=== PATIENT | female | born 1950 | race Caucasian/White ===

== ENCOUNTER → 2016-09-07 | Outpatient (CLI) | payer OTHER, MEDICARE ==
[~2016-09-07] MED LIST: CALC500C70 PO; LEVO75TA5 PO; MULT-506 PO
[2016-09-07 11:39] LABS: BASO % 0.5 %; BASO ABS # 0.03 K/uL (0-0.2); COMPLETE YES; EOS % 1.3 %; HEMATOCRIT 41.4 % (37-47); IG% 0.2 %; LYMPH % 25.4 %; LYMPH ABS # 1.41 K/uL (1.2-3.4); MEAN CELL VOLUME 95.8 fL (80-100); MEAN CORPUSCULAR HEMOGLOBIN 31.7 pg (25-34); MEAN CORPUSCULAR HGB CONC 33.1 g/dl (32-36); MEAN PLATELET VOLUME 11.2 fL (7.4-10.4); MONO % 5.9 %; NEUT % 66.7 %; PLATELET COUNT 209 K/uL (130-400); RED BLOOD COUNT 4.32 M/uL (4.2-5.4); WHITE BLOOD COUNT 5.56 K/uL (4.8-10.8)
[2016-09-07 11:56] LABS: ALKALINE PHOSPHATASE 72 U/L (45-117); ALT/SGPT 19 U/L (12-78); AST/SGOT 13 U/L (15-37); BLOOD UREA NITROGEN 19 mg/dl (7-18); BUN/CREATININE RATIO 20.6 (10-20); CALCIUM 9.1 mg/dl (8.5-10.1); CARBON DIOXIDE 26 mmol/L (21-32); CHLORIDE 104 mmol/L (98-107); CHOLESTEROL 211 mg/dl (0-200); CHOLESTEROL/HDL RATIO 3.3; CREATININE 0.91 mg/dl (0.60-1.20); GLUCOSE 86 mg/dl (70-99); HDL CHOLESTEROL 63 mg/dl; POTASSIUM 4.2 mmol/L (3.5-5.1); SODIUM 140 mmol/L (136-145)
[2016-09-07 12:07] LABS: ALB/GLOB RATIO 1.4 (0.9-2); LDL CHOLESTEROL CALCULATED 126 mg/dl; THYROID STIMULATING HORMONE 0.447 uIu/ml (0.300-4.500); TRIGLYCERIDES 110 mg/dl (0-150); VERY LOW DENSITY LIPOPROT CALC 22 mg/dl
== END | disposition home or self-care (01) ==
LOC: C.LABBC 09:16
PROVIDERS: ATTEND Internal Medicine Geriatric Medicine
DX: Z00.00 Encounter for general adult medical examination without abnormal findings (principal); M81.0 Age-related osteoporosis without current pathological fracture; E03.9 Hypothyroidism, unspecified; E78.5 Hyperlipidemia, unspecified; R10.9 Unspecified abdominal pain; K58.9 Irritable bowel syndrome, unspecified; G43.109 Migraine with aura, not intractable, without status migrainosus; E55.9 Vitamin D deficiency, unspecified; G47.33 Obstructive sleep apnea (adult) (pediatric)

== ENCOUNTER → 2016-11-27 | Day surgery (SDC) | payer OTHER, MEDICARE ==
[2016-11-23 08:33] VITALS: Ht 162.6 cm; Wt 53.2 kg
[~2016-11-27] VITALS: Ht 162.6 cm; Wt 53.2 kg
[~2016-11-27] MED LIST changes: +LIDOCAINE HCL 2% 2 ML VIAL (20MG/ML) ONE; +MIDAZOLAM HCL 1 MG/ML 2ML VIAL ONE; +ONDANSETRON INJ 2 MG/ML 2 ML VIAL ONE; +PROPOFOL IV EMULSION 10 MG/ML 20 ML VIAL IV ONE; +SODIUM CHLORIDE 0.9% 500ML 500 ML IV ONE
--- NOTE | 2016-11-27 13:01 | Endo History and Physical ---
History & Physical Date of Service: Nov 27, 2016. Chief Complaint: History of colon polyps Referring Physician: Wilver Beckham History of Present Illness 66 yo CM who presents for colonoscopy secondary to history of colon polyps. Past Surgical History Hx Cardiac Surgery: No Hx Internal Defibrillator: No Hx Pacemaker: No Hx Abdominal Surgery: Yes (APPY, "FERTILITY SURGERY") Hx of Implantable Prosthesis: No Hx Post-Op Nausea and Vomiting: Yes Hx Cancer Surgery: No Hx Thoracic Surgery: No Hx Orthopedic: Yes (ORIF RT FEMUR ([place]ARD[place])) Hx Urinary Tract Surgery: No Family History None Social History Smoking Status: Never Smoker Hx Substance Use: No Hx Alcohol Use: Yes (OCCASIONALLY) Allergies Coded Allergies: Dairy (Verified Allergy, Unknown, DOES NOT EAT-CAN NOT TOLERATE, 11/23/16) Penicillins (Verified Allergy, Unknown, RASH, 11/23/16) Morphine (Verified Adverse Reaction, Mild, MAKES PT NAUSEATED, 06/17/13) Current Medications Reported Home Medications Medications Dose Route/Sig Max Daily Dose Days Date Category Multivitamin (Multivitamins) Tab 1 Tab PO QAM 06/17/13 Reported Os-Davian 500 Plus D (Calcium/Vitamin D) Tab 1 Tab PO QAM 06/17/13 Reported Levothyroxine Sodium 75 Mcg Tab 75 Mcg PO QAM 06/17/13 Reported Vital Signs Weight (Kilograms): 53.18 Height (Feet): 5 Height (Inches): 4 Physical Exam General Appearance: WD/WN, no apparent distress Respiratory/Chest: Auscultation: breath sounds normal Cardiovascular: Heart Auscultation: RRR Abdomen: Bowel Sounds: normal Inspection & Palpation: soft, non-distended, no tenderness, guarding & rebound Assessment and Plan Assessment: 66 yo CM who presents for colonoscopy secondary to history of colon polyps. Plan: Proceed with colonoscopy.
--- NOTE | 2016-11-27 14:04 | GI REPORT ---
Procedure Date: 11/27/2016 1:17 PM Procedure: Colonoscopy Indications: High risk colon cancer surveillance: Personal history of colonic polyps Medicines: Monitored Anesthesia Care Complications: No immediate complications. Estimated Blood Loss: Estimated blood loss: none. Procedure: Pre-Anesthesia Assessment: - Prior to the procedure, a History and Physical was performed, and patient medications and allergies were reviewed. The patient's tolerance of previous anesthesia was also reviewed. The risks and benefits of the procedure and the sedation options and risks were discussed with the patient. All questions were answered, and informed consent was obtained. Prior Anticoagulants: The patient has taken no previous anticoagulant or antiplatelet agents. ASA Grade Assessment: II - A patient with mild systemic disease. After reviewing the risks and benefits, the patient was deemed in satisfactory condition to undergo the procedure. After I obtained informed consent, the scope was passed under direct vision. Throughout the procedure, the patient's blood pressure, pulse, and oxygen saturations were monitored continuously. The scope was introduced through the anus and advanced to the terminal ileum. The colonoscopy was performed without difficulty. The patient tolerated the procedure well. The quality of the bowel preparation was good. The terminal ileum, ileocecal valve, appendiceal orifice, and rectum were photographed. Findings: A 3 mm polyp was found in the cecum. The polyp was sessile. The polyp was removed with a cold biopsy forceps. Resection and retrieval were complete. Two sessile polyps were found in the ascending colon. The polyps were 5 to 7 mm in size. These polyps were removed with a hot snare. Resection and retrieval were complete. Multiple small-mouthed diverticula were found in the sigmoid colon. Non-bleeding internal hemorrhoids were found during retroflexion. The hemorrhoids were small. Impression: - One 3 mm polyp in the cecum, removed with a cold biopsy forceps. Resected and retrieved. - Two 5 to 7 mm polyps in the ascending colon, removed with a hot snare. Resected and retrieved. - Diverticulosis in the sigmoid colon. - Non-bleeding internal hemorrhoids. Recommendation: - Resume previous diet. - Continue present medications. - Repeat colonoscopy for surveillance based on pathology results. - Return to primary care physician as previously scheduled. Bo Nation DO 11/27/2016 2:03:22 PM This report has been signed electronically. Note Initiated On: 11/27/2016 1:17 PM I attest to the content of the Intraoperative Record and orders documented therein, exceptions below
--- NOTE | 2016-11-27 14:07 | Discharge Instructions ---
Endoscopy Patient Instructions Date / Procedure(s) Performed Nov 27, 2016. Colonoscopy Allergy Information Coded Allergies: Dairy (Verified Allergy, Unknown, DOES NOT EAT-CAN NOT TOLERATE, 11/23/16) Penicillins (Verified Allergy, Unknown, RASH, 11/23/16) Morphine (Verified Adverse Reaction, Mild, MAKES PT NAUSEATED, 06/17/13) Discharge Date / Findings Nov 27, 2016. Colon polyps Diverticulosis Internal hemorrhoids Medication Instructions OK to resume all medications today as prescribed. Reported Home Medications Medications Dose Route/Sig Max Daily Dose Days Date Category Multivitamin (Multivitamins) Tab 1 Tab PO QAM 06/17/13 Reported Os-Davian 500 Plus D (Calcium/Vitamin D) Tab 1 Tab PO QAM 06/17/13 Reported Levothyroxine Sodium 75 Mcg Tab 75 Mcg PO QAM 06/17/13 Reported Provider Instructions Activity Restrictions - No exercising or heavy lifting for 24 hours. - Do not drink alcohol the day of the procedure. - Do not drive a car or operate machinery until the day after the procedure. - Do not make any important decisions or sign important papers in 24 hours after the procedure. Following Day: - Return to full activity which may include returning to work/school. Diet Start your diet with liquids and light foods (jello, soup, juice, toast). Then eat your usual diet if not nauseated. Treatment For Common After Affects For mild abdominal pain, bloating, or excessive gas: - Rest - Eat lightly - Lie on right side Follow-Up Information Follow-up with Dr. Andrea Beckham as scheduled Anesthesia Information What You Should Know You have had a procedure that required some medicine to reduce anxiety and discomfort. This treatment is called moderate sedation. After receiving the treatment, you may be sleepy, but you will be able to breathe on your own. The effects of the treatment may last for several hours. Follow these instructions along with Activity/Diet recommendations noted above: * Do NOT do anything where dizziness or clumsiness would be dangerous. * Rest quietly at home today, then you can be up and about tomorrow. * Have a responsible person stay with you the rest of today. * You may have had an I.V. today. If so, you may take the dressing off later today. Recommendations Call your doctor if: * Trouble breathing * Continuous vomiting for more than 24 hours * Temperature above 101 degrees * Severe abdominal pain or bloating * Pain not relieved by pain medicine ordered * There is increased drainage or redness from any incision * A large amount of rectal bleeding greater than 2-3 tablespoons. (If you had a polyp/s removed or have hemorrhoids, a small amount of blood - from the rectum is to be expected.) * You have any unanswered questions or concerns. IN THE EVENT OF A SERIOUS EMERGENCY, GO TO THE NEAREST EMERGENCY ROOM Your discharge instructions were prepared by provider Bo Nation. Patient Instructions Signature Page Nella Rutherford Patient (or Guardian) Signature/Date: I have read and understand the instructions given to me by my caregivers. Caregiver/RN/Doctor Signature/Date: The above-named patient and/or guardian has received patient instructions on this date. + Original Patient Signature Page (only) stays with chart. Please make copy for patient.
--- NOTE | 2016-11-27 14:19 | Anesthesiology Progress Note ---
Anesthesia Post Op Note Date & Time Nov 27, 2016 at 14:18 Vital Signs Pain Intensity: 0 Vital Signs Past 12 Hours Date Time Temp Pulse Resp B/P Pulse Ox O2 Delivery O2 Flow Rate FiO2 11/27/16 14:15 70 16 117/72 97 Room Air 11/27/16 14:00 68 16 94/60 96 Room Air 11/27/16 12:58 36.8 64 20 107/65 98 Room Air Notes Mental Status: alert / awake / arousable, participated in evaluation Pt Amnestic to Procedure: Yes Nausea / Vomiting: adequately controlled Pain: adequately controlled Airway Patency, RR, SpO2: stable & adequate BP & HR: stable & adequate Hydration State: stable & adequate Anesthetic Complications: no major complications apparent
[2016-11-27 14:30] VITALS: BP 111/66; PULSE 60; O2SAT 98
== END | disposition home or self-care (01) ==
LOC: C.GI 12:38
PROVIDERS: ATTEND Internal Medicine
DX: Z12.11 Encounter for screening for malignant neoplasm of colon (principal); D12.2 Benign neoplasm of ascending colon; D12.0 Benign neoplasm of cecum; K57.30 Diverticulosis of large intestine without perforation or abscess without bleeding; K64.8 Other hemorrhoids; Z86.010 Personal history of colon polyps; Z90.49 Acquired absence of other specified parts of digestive tract

== ENCOUNTER → 2017-07-17 | Day surgery (SDC) | payer OTHER, MEDICARE ==
[2017-07-02 11:30] VITALS: Ht 162.6 cm; Wt 53.2 kg
[2017-07-03 17:44] LABS: BASO % 0.8 %; BASO ABS # 0.04 K/uL (0-0.2); COMPLETE YES; EOS % 3.3 %; HEMATOCRIT 38.9 % (37-47); IG% 0.2 %; LYMPH % 35.6 %; LYMPH ABS # 1.86 K/uL (1.2-3.4); MEAN CELL VOLUME 94.9 fL (80-100); MEAN CORPUSCULAR HEMOGLOBIN 32.2 pg (25-34); MEAN CORPUSCULAR HGB CONC 33.9 g/dl (32-36); MEAN PLATELET VOLUME 11.2 fL (7.4-10.4); MONO % 7.1 %; PLATELET COUNT 194 K/uL (130-400); WHITE BLOOD COUNT 5.22 K/uL (4.8-10.8)
[2017-07-03 18:06] LABS: BUN/CREATININE RATIO 16.8 (10-20); CALCIUM 9.2 mg/dl (8.5-10.1); CREATININE 0.92 mg/dl (0.60-1.20)
[2017-07-03 18:09] LABS: INR 0.9 (0.9-1.1); PARTIAL THROMBOPLASTIN RATIO 1.1; PROTHROMBIN TIME (PATIENT) 10.1 SECONDS (9.0-12.0)
[~2017-07-17] VITALS: Ht 162.6 cm; Wt 53.2 kg
[~2017-07-17] MED LIST changes: +ACETAMINOPHEN 325 MG TAB PO PRN; +ARTIFICIAL TEARS OP OINT 3.5 GM TUBE ONE; +ATROPINE SULFATE 0.1 MG/ML 5ML SYR IV PRN; +CLINDAMYCIN PHOS 150 MG/ML 2 ML VIAL IV SCH; +DEXAMETHASONE SOD INJ 4 MG/ML VIAL ONE; +ERYTHROMYCIN OP OINT 5 MG/GM 3.5 GM TUBE ONE; +EpHEDrine SULFATE INJ 50 MG/ML AMP IV PRN; +FENTANYL CITRATE INJ 50 MCG/1 ML 2 ML VIAL IV PRN; +FENTANYL CITRATE INJ 50 MCG/1 ML 2 ML VIAL ONE; +GENTIAN VIOLET TOP SOLN DROP CHARGE ONE; +KETOROLAC TROMETHAMINE 15 MG/ML VIAL IV. PRN; +LACTATED RINGER'S 1000ML 1,000 ML IV SCH; +LIDOCAINE/EPINEPHRINE 1% INJ 50 ML VIAL ONE; +METOCLOPRAMIDE HCL INJ 5 MG/ML 2 ML VIAL IV PRN; +ONDANSETRON INJ 2 MG/ML 2 ML VIAL IV PRN; +OXYCODONE/ACETAMINOPHEN 5-325 TAB PO PRN; +POVIDONE-IODINE OP SOLN 30 ML BTL ONE; +SODIUM CHLORIDE 0.9% 1000ML 1,000 ML IV SCH; -SODIUM CHLORIDE 0.9% 500ML 500 ML IV ONE
--- NOTE | 2017-07-17 07:50 | History & Physical Bridge - [place] ---
H&P Re-Evaluation Bridge Note: I have examined the patient, reviewed the History & Physical and in the interval since the performance of the History & Physical I have noted the following changes of clinical significance: No changes noted
--- NOTE | 2017-07-17 09:18 | [facility] Post Operative Brief Note ---
Immediate Operative Summary Operative Date Jul 17, 2017. Pre-Operative Diagnosis Bilateral Dermatochalasis Post-Operative Diagnosis Same Procedure(s) Performed Bilateral Upper Blepharoplasty Surgeon Dr. Matt New Car Sales Manager Surgeon(s) Emilie Medrano PA-C Estimated Blood Loss 1 mL Findings dermatochalasis Specimens None Anesthesia general Complication(s) None Disposition Recovery Room / PACU
--- NOTE | 2017-07-17 09:28 | Discharge Instructions ---
Discharge Instructions Date of Service Jul 17, 2017. Admission Reason for Admission: Bilateral Dermatochalasis Discharge Discharge Diagnosis / Problem: dermatochalasis Discharge Goals Goal(s): Decrease discomfort, Improve function Activity Recommendations Activity Limitations: per Instructions/Follow-up section ACTIVITY RECOMMENDATIONS: __Normal activities _x_No bending, lifting or straining _x_No driving __Driving allowed when you are off pain medications _x_Walking permitted __You should have help at home for ___ days DRESSINGS: x__No dressings required __Keep dressings dry/in place until first office visit __Remove dressings ___ and leave dressings off _x_Apply ice _at least first 3 days- 20 min on, 20 min off while awake as much as possible __Remove dressings and reapply garment _x_Apply antibiotic ointment to wounds 3-4 times/day until tube is gone BATHING: __Keep dressings dry _x_Sponge bathing permitted __Showering permitted _x_No swimming, hot tubs or soaking in a tub MEDICATIONS: Resume previous medications unless instructed otherwise by your surgeon. _x_Do not use aspirin, Motrin, Advil or Ibuprofen as these may promote bleeding. Please use Tylenol. _x_Prescription(s) provided: pain medication and antibiotic ointment were provided at your last office visit OTHER INSTRUCTIONS: __Record drain output 2-3 times per day SPECIAL CARE INSTRUCTIONS: * It is normal to have a mild fever after surgery. If your temperature is higher than 101.5 degrees F, please call the office at [phone]. * Constipation is a typical side effect of pain medication. An over-the- counter stool softener will help relieve this. * Leaking around surgical drains may occur and should not cause concern. Sometimes these drains become clogged. If this happens, remove the bulb and milk the clot out of the tube, then replace the bulb. * Drainage from wounds after liposuction is normal and should be expected. Garments will become soiled. You should protect furniture and bedding. This drainage should mostly subside within 2-3 days. Leave garments in place unless instructed to remove them. * If you have unusual drainage from a wound or are concerned you have an infection or have any questions or concerns, please call the office at [phone]. FOLLOW UP VISIT: If not already scheduled, please call the office, , when you return home after surgery to schedule an appointment to be seen in _2__ days. . Current Hospital Diet Patient's current hospital diet: Discharge Diet Recommended Diet: Regular Diet Procedures Procedures Performed: Bilateral Upper Blepharoplasty Pending Studies Studies pending at discharge: no Medical Emergencies . Who to Call and When: Medical Emergencies: If at any time you feel your situation is an emergency, please call 911 immediately. . Non-Emergent Contact Non-Emergency issues call your: Primary Care Provider, Surgeon . "Provider Documentation" section prepared by Yen Medrano. . VTE Core Measure Inpt VTE Proph given/why not?: SCD's [place] Drug Monitoring Program Search Results: no issues identified
[2017-07-17 10:48] VITALS: TEMP 36.2
--- NOTE | 2017-07-17 10:59 | Anesthesia Progress Nt - [facility] ---
Anesthesia Post Op Note Date & Time Jul 17, 2017 at 10:58 Vital Signs Pain Intensity: 3 Vital Signs Past 12 Hours Date Time Temp Pulse Resp B/P (MAP) Pulse Ox O2 Delivery O2 Flow Rate FiO2 07/17/17 10:48 36.2 64 16 115/73 (87) 96 Room Air 07/17/17 10:15 64 18 123/74 98 07/17/17 10:15 64 18 07/17/17 10:13 36.7 65 16 123/74 96 Room Air 07/17/17 10:10 64 20 07/17/17 10:10 65 20 127/73 96 07/17/17 10:05 65 14 07/17/17 10:05 66 14 124/73 98 07/17/17 10:00 69 16 126/81 98 07/17/17 10:00 68 16 07/17/17 09:56 116/70 07/17/17 09:55 69 22 100 07/17/17 09:55 67 22 07/17/17 09:50 70 18 112/66 100 07/17/17 09:50 69 18 07/17/17 09:45 73 20 07/17/17 09:45 71 20 110/68 100 07/17/17 09:40 73 25 07/17/17 09:40 74 25 112/69 100 07/17/17 09:35 72 16 117/67 100 07/17/17 09:35 72 16 07/17/17 09:30 77 20 108/65 100 07/17/17 09:30 76 20 07/17/17 09:25 36.0 83 24 102/64 100 Diffusion Mask 6 07/17/17 09:25 102/64 07/17/17 07:31 37.1 63 16 116/68 (84) 98 Room Air Notes Mental Status: alert / awake / arousable, participated in evaluation Pt Amnestic to Procedure: Yes Nausea / Vomiting: adequately controlled Pain: adequately controlled Airway Patency, RR, SpO2: stable & adequate BP & HR: stable & adequate Hydration State: stable & adequate Anesthetic Complications: no major complications apparent
[2017-07-17 11:30] VITALS: BP 106/72; PULSE 67; O2SAT 98
--- NOTE | 2017-07-17 15:11 | OPERATIVE REPORT ---
DATE OF OPERATION: 07/17/2017 PREOPERATIVE DIAGNOSIS: Bilateral upper eyelid dermatochalasis. POSTOPERATIVE DIAGNOSIS: Same. PROCEDURE: Bilateral upper blepharoplasty. SURGEON: Dr. Tiffany Matt. TREATMENT PLANT OPERATOR: Yen Medrano PA-C. ANESTHESIA: General. COMPLICATIONS: None. INDICATION FOR THE PROCEDURE: The patient is a 67-year-old female who presented to my office with drooping eyelids and visual field obstruction. We discussed performing non-cosmetic upper blepharoplasty with possible brow lift. Ultimately, she decided against brow lift at the advice of her daughter, who is an wheel and pinion inspector. We elected to proceed with bilateral non-cosmetic upper eyelid blepharoplasty. BRIEF DESCRIPTION OF THE PROCEDURE: The risks, benefits and alternatives of the procedure were explained to the patient who agreed and signed consent. She was identified and marked in the preoperative holding area. She was brought to the operating room where she was positioned supine and placed under general anesthesia without incident. Surgical site was prepped and draped sterilely. A time-out procedure was performed. Markings were applied. A trapezoidal incision was marked within the supratarsal crease. There was some mild asymmetry between the supratarsal creases and therefore I marked them both 7 mm above the ciliary margin and the midpupillary line. Incision was carried medially toward the medial punctum taking care not to cross this anatomic landmark and also marked into the lateral canthal area. Superior incision was marked about 1 cm below the brow. The skin was pinched to make sure that adequate closure could be performed. This was felt to be easily achievable without causing any degree of lagophthalmos. Identical markings were applied to the right side. Corneal protectors were placed. 1% lidocaine with epinephrine was used to anesthetize the planned incisions. I began with the left side. A 15 blade scalpel was used to make the incision. Skin was dissected off the underlying orbicularis musculature using electrocautery. The excision was performed in a lateral to medial direction. I opened the medial fat compartments bilaterally, but there was only minimal return of fat. Hemostasis was achieved with electrocautery. The wound was reapproximated using 6-0 nylon interrupted sutures taking a bite of orbicularis muscle with each suture. An identical procedure was undertaken on the right side. Following completion of the procedure, corneal protectors were removed. Eyes were irrigated with balanced salt solution and antibiotic ophthalmic ointment was applied. The procedure was tolerated well. The patient was extubated, and transferred to recovery in satisfactory condition. Yen Medrano PA-C was present and scrubbed throughout the entire procedure and assisted in retraction during skin dissection and simultaneous wound closure. I attest to the content of the Intraoperative Record and any orders documented therein. Any exception s are noted below.
== END | disposition home or self-care (01) ==
LOC: X.SURG 07:12
PROVIDERS: ATTEND Plastic Surgery
DX: H02.833 Dermatochalasis of right eye, unspecified eyelid (principal); H02.836 Dermatochalasis of left eye, unspecified eyelid; L90.8 Other atrophic disorders of skin; E78.5 Hyperlipidemia, unspecified; G47.33 Obstructive sleep apnea (adult) (pediatric); M81.0 Age-related osteoporosis without current pathological fracture; E89.0 Postprocedural hypothyroidism; E55.9 Vitamin D deficiency, unspecified; Z87.81 Personal history of (healed) traumatic fracture; Z80.49 Family history of malignant neoplasm of other genital organs; Z88.0 Allergy status to penicillin

== ENCOUNTER → 2017-12-07 | Outpatient (CLI) | payer OTHER, MEDICARE ==
[~2017-12-07] MED LIST changes: -ACETAMINOPHEN 325 MG TAB PO PRN; -ARTIFICIAL TEARS OP OINT 3.5 GM TUBE ONE; -ATROPINE SULFATE 0.1 MG/ML 5ML SYR IV PRN; -CLINDAMYCIN PHOS 150 MG/ML 2 ML VIAL IV SCH; -DEXAMETHASONE SOD INJ 4 MG/ML VIAL ONE; -ERYTHROMYCIN OP OINT 5 MG/GM 3.5 GM TUBE ONE; -EpHEDrine SULFATE INJ 50 MG/ML AMP IV PRN; -FENTANYL CITRATE INJ 50 MCG/1 ML 2 ML VIAL IV PRN; -FENTANYL CITRATE INJ 50 MCG/1 ML 2 ML VIAL ONE; -GENTIAN VIOLET TOP SOLN DROP CHARGE ONE; -KETOROLAC TROMETHAMINE 15 MG/ML VIAL IV. PRN; -LACTATED RINGER'S 1000ML 1,000 ML IV SCH; -LIDOCAINE HCL 2% 2 ML VIAL (20MG/ML) ONE; -LIDOCAINE/EPINEPHRINE 1% INJ 50 ML VIAL ONE; -METOCLOPRAMIDE HCL INJ 5 MG/ML 2 ML VIAL IV PRN; -MIDAZOLAM HCL 1 MG/ML 2ML VIAL ONE; -ONDANSETRON INJ 2 MG/ML 2 ML VIAL IV PRN; -ONDANSETRON INJ 2 MG/ML 2 ML VIAL ONE; -OXYCODONE/ACETAMINOPHEN 5-325 TAB PO PRN; -POVIDONE-IODINE OP SOLN 30 ML BTL ONE; -PROPOFOL IV EMULSION 10 MG/ML 20 ML VIAL IV ONE; -SODIUM CHLORIDE 0.9% 1000ML 1,000 ML IV SCH
[2017-12-07 11:16] LABS: BASO % 1.7 %; BASO ABS # 0.07 K/uL (0-0.2); EOS ABS # 0.12 K/uL (0-0.5); HEMOGLOBIN 13.7 g/dL (12.0-16.0); LYMPH % 49.9 %; LYMPH ABS # 2.02 K/uL (1.2-3.4); MEAN CELL VOLUME 93.9 fL (80-100); MEAN CORPUSCULAR HEMOGLOBIN 32.2 pg (25-34); MEAN CORPUSCULAR HGB CONC 34.3 g/dl (32-36); MEAN PLATELET VOLUME 11.3 fL (7.4-10.4); MONO % 8.9 %; MONO ABS # 0.36 K/uL (0.11-0.59); NEUT % 36.5 %; NEUT ABS # 1.48 K/uL (1.4-6.5); PLATELET COUNT 185 K/uL (130-400); RED CELL DISTRIBUTION WIDTH CV 12.8 % (11.5-14.5); RED CELL DISTRIBUTION WIDTH SD 43.8 fL (36.4-46.3); WHITE BLOOD COUNT 4.05 K/uL (4.8-10.8)
[2017-12-07 11:29] LABS: ALBUMIN 3.8 gm/dl (3.4-5.0); ALT/SGPT 19 U/L (12-78); AST/SGOT 17 U/L (15-37); BLOOD UREA NITROGEN 20 mg/dl (7-18); CARBON DIOXIDE 27 mmol/L (21-32); CREATININE 0.95 mg/dl (0.60-1.20); GLUCOSE 92 mg/dl (70-99); SODIUM 138 mmol/L (136-145)
[2017-12-07 11:40] LABS: ALKALINE PHOSPHATASE 70 U/L (45-117); CHOLESTEROL 209 mg/dl (0-200); LDL CHOLESTEROL CALCULATED 132 mg/dl; TOTAL PROTEIN 7.1 gm/dl (6.4-8.2)
== END | disposition home or self-care (01) ==
LOC: C.LABBC 07:38
PROVIDERS: ATTEND Internal Medicine Geriatric Medicine
DX: E74.21 Galactosemia (principal); M81.0 Age-related osteoporosis without current pathological fracture; E03.9 Hypothyroidism, unspecified; E78.5 Hyperlipidemia, unspecified; E55.9 Vitamin D deficiency, unspecified